=== PATIENT | male | born 1980 | race Caucasian/White ===

== ENCOUNTER 2022-12-08 08:18 | Emergency (ER) | payer BC, SELFPAY ==
[2022-12-08 08:26] VITALS: BP 145/83; PULSE 70; RESP 20; TEMP 36.7; O2SAT 96
--- NOTE | 2022-12-08 08:41 | ED.GENADULT ---
HPI - General Adult General Chief complaint: Upper Respiratory Infection Stated complaint: sore throat Source: patient Mode of arrival: ambulatory Limitations: no limitations History of Present Illness HPI narrative: Patient presents for evaluation of sore throat for last four days. No fever, chills, nausea, vomiting, diarrhea, cough, shortness of breath. No recent sick contacts to his knowledge. He is not taking any medication for his symptoms. He does smoke marijuana. He denies tobacco use. No additional complaints or concerns. Related Data Allergies Allergy/AdvReac Type Severity Reaction Status Date / Time No Known Allergies Allergy Unknown Verified 06/26/15 14:59 Review of Systems Review of Systems: CONSTITUTIONAL: Denies fever, chills, or sweats. EYES: Denies visual changes, redness, or discharge. ENT: Reports sore throat. Denies rhinorrhea, congestion, or otalgia. CARDIOVASCULAR: Denies chest pain, palpitations, or edema. RESPIRATORY: Denies cough or dyspnea. GASTROINTESTINAL: Denies abdominal pain, nausea, vomiting, or diarrhea. GENITOURINARY: Denies dysuria or hematuria. SKIN: Denies rash or itching. MUSCULOSKELETAL: Denies back pain, joint pain, or myalgia. NEUROLOGIC: Denies headache, numbness, dizziness, or weakness. PSYCHIATRIC: Denies anxiety or depression. [facility] Past Medical History Medical History (Updated 12/08/22 @ 08:49 by Jaime Richardson, [facility], ) No pertinent past medical history Surgical History Surgical History History of appendectomy Family History Family History Mother Family history non-contributory Social History Social History (Updated 12/08/22 @ 08:44 by Jaime Richardson, [facility], ) Smoking status: Never smoker Substance use: current Substance use type: marijuana Living arrangements: with family Gender identity (if verbalized by the patient): Male Sexual Orientation (if Verbalized by the Patient): Straight or Heterosexual Spiritual care concerns: No Exam Narrative: GENERAL: Well-appearing, well-nourished, and in no acute distress. HEAD: Normocephalic, atraumatic. EYES: PERRLA and EOMI. ENT: Nares clear, no rhinorrhea or epistaxis. Mucous membranes moist. Posterior pharyngeal erythema without exudate. Uvula is midline. Bilateral TMs pearly vasquez nonbulging NECK: Supple. No adenopathy or masses. No carotid bruits or JVD CHEST: Clear to auscultation. No respiratory distress. No wheezes rales or rhonchi HEART: Regular rate and rhythm. No murmur heard. Normal peripheral pulses. ABDOMEN: Soft, nontender, nondistended, normal active bowel sounds. EXTREMITIES: Normal range of motion. No edema. SKIN: Warm, dry, no rash. NEURO: No focal deficits. Alert and oriented x3. PSYCH: Normal mood and affect. Course Course Emergency Course: This is a 42-year-old male who presented for evaluation of sore throat. Rapid strep negative. Will send stable for throat culture. Discussed waiting on results vs tx today. Opted to tx with amoxicillin. Follow up outpatient for further evaluation treatment include the ER for worsening symptoms. Patient in agreement with plan of care. Level of Care: Express Care Visit Vital Signs Vital signs: Vital Signs Temperature 36.7 C 12/08/22 08:26 Pulse Rate 70 12/08/22 08:26 Respiratory Rate 20 12/08/22 08:26 Blood Pressure 145/83 H 12/08/22 08:26 Pulse Oximetry 96 12/08/22 08:26 Oxygen Delivery Room Air 12/08/22 08:26 Temperature 36.7 C 12/08/22 08:26 Pulse Rate 70 12/08/22 08:26 Respiratory Rate 20 12/08/22 08:26 Blood Pressure 145/83 H 12/08/22 08:26 Pulse Oximetry 96 12/08/22 08:26 Oxygen Delivery Room Air 12/08/22 08:26 Medical Decision Making Vital Signs Vital Signs: Vital Signs Temperature 36.7 C 12/08/22 08:26 Pulse Rate 70 12/08/22 08:26 Resp
== END 2022-12-08 08:52 | disposition home or self-care (01) ==
PROVIDERS: Emergency Provider Nurse Practitioner; PCP Internal Medicine
DX: J02.9 Acute pharyngitis, unspecified (principal); F12.90 Cannabis use, unspecified, uncomplicated
CPT/HCPCS: 87081; 87880; 99203; G0463